=== PATIENT | female | born 1940 | race Caucasian/White ===

== ENCOUNTER 2017-03-11 17:18 | Emergency (ER) | payer MEDICARE, OTHER ==
--- NOTE | 2017-03-11 18:13 | ER NURSING DOCUMENTATION ---
Nurse's Notes [facility] Name:Raquel Rincon Age:76 yrs Sex:Female :1940 Arrival Date:03/11/2017 Time:17:18 Bed1 Private MD:Elvira Mitchell Diagnosis:Acute Sinusitis Presentation: 03/11 17:30 Presenting complaint: Patient states: facial pain around eyes, bridge of nose and sc1 forehead worsening for 2 days. Not blowing anything out of nose. Transition of care: Home. Notified ED Physician of Sal [place] notified. 17:30 Acuity: SIGRID 3 sc1 17:30 Method Of Arrival: Private Vehicle ga1 Triage Assessment: 17:46 General: Appears uncomfortable, well developed, well nourished, well groomed, Behavior sc1 is cooperative, pleasant. Pain: Complains of pain in forehead, right eye, right cheek, left cheek and left eye. Historical: - Allergies: DONEPEZIL; Codeine; Latex; - Home Meds: 1. donepezil 5 mg oral tab 2. thyroid med 3. Avastatin - PMHx: GERD; hyperlipidemia; HYPOTHYROIDISM; - PSHx: HYSTERECTOMY; SHOULDER SURGERY; finger surgery; CHOLECYSTECTOMY; - Tetanus: unknown. - Ebola Screening: : Patient negative for fever greater than or equal to 101.5 degrees Fahrenheit, and additional compatible Ebola Virus Disease symptoms. Patient denies exposure to infectious person. Patient denies travel to an Ebola-affected area in the 21 days before illness onset. No symptoms or risks identified at this time. . - Immunization history: Pneumococcal vaccine is up to date, Flu Vaccine < 1 year. - Social history: Smoking status: Patient states was never smoker of tobacco. Patient uses alcohol but reports only rare drinking. Patient/guardian denies using street drugs, IV drugs, marijuana. Screenin:49 Infectious Disease Risk None. Abuse screen: Denies threats or abuse. Nutritional sc1 screening: No deficits noted. Vital Signs: 17:48 BP 145 / 60; Pulse 89; Resp 18; Temp 98.9(O); Pulse Ox 94% on R/A; sc1 ED Course: 17:21 Patient arrived in ED. arc 17:21 Elviar Mitchell MD is Private Physician. arc 17:30 Nielsen, Sabrina, RN is Primary Nurse. sc1 17:33 Triage completed. ga1 17:47 Ari Huang MD is Attending Physician. daxa 17:48 Notified ED Physician of patient's arrival and chief complaint. Dr. Huang notified. ga1 17:58 Elvira Mitchell MD is Referral Physician. 18:12 Valuables Remains with patient. sc1 Administered Medications: No medications were administered Outcome: 17:58 Discharge ordered by . 18:12 Discharged to home ambulatory. [facility] [place] 18:12 Condition: stable 18:12 Discharge instructions given to patient, Instructed on discharge instructions, follow up and referral plans. medication usage, Demonstrated understanding of instructions, medications. 18:12 Patient left the ED. [facility] [place] Signatures: Sabrina Nielsen RN RN ga1 Ari Huang MD MD jm Chew, Amelia, Reg Reg arc
--- NOTE | 2017-03-11 18:13 | ER PHYSICIAN DOCUMENTATION ---
Physician Documentation [facility] Name:Raquel Rincon Age:76 yrs Sex:Female :1940 Arrival Date:03/11/2017 Time:17:18 Bed1 Private MD:Elvira Mitchell ED, John Disposition: 03/11/17 17:58 Discharged to Home/Self Care. Impression: Acute Sinusitis. - Condition is Good. - Discharge Instructions: SINUSITIS, No Abx. - Medical Reconciliation form form. - Follow up: Elvria Mitchell MD; When: later this week; Reason: Continuance of care. - Problem is new. - Symptoms have improved. - Notes: Buy a Tylenol Cold and Sinus tabs Buy Aleve Buy a Neti Pot Buy Nasacort nasal spray Use all of these to help with your pain. HPI: 03/11 18:00 This 76 yrs old Female presents to ER via Private Vehicle with complaints of jm Sinus Congestion. 18:00 The patient or guardian reports congestion. Onset: The symptom(s)/episode jm began/occurred 2 day(s) ago. Severity of symptoms: At their worst the symptoms were severe. Modifying factors:. Associated signs and symptoms: Pertinent positives: Facial [place]. , Pertinent negatives: ear ache, fever, sore throat, vomiting. The patient has not recently seen a physician. Pt w 2 days of sinus plugging w facial pain. Pt has not tried a single OTC medicine to help w sx. . Historical: - Allergies: DONEPEZIL; Codeine; Latex; - Home Meds: 1. donepezil 5 mg oral tab 2. thyroid med 3. Avastatin - PMHx: GERD; hyperlipidemia; HYPOTHYROIDISM; - PSHx: HYSTERECTOMY; SHOULDER SURGERY; finger surgery; CHOLECYSTECTOMY; - Tetanus: unknown. - Ebola Screening: : Patient negative for fever greater than or equal to 101.5 degrees Fahrenheit, and additional compatible Ebola Virus Disease symptoms. Patient denies exposure to infectious person. Patient denies travel to an Ebola-affected area in the 21 days before illness onset. No symptoms or risks identified at this time. . - Immunization history: Pneumococcal vaccine is up to date, Flu Vaccine < 1 year. - Social history: Smoking status: Patient states was never smoker of tobacco. Patient uses alcohol but reports only rare drinking. Patient/guardian denies using street drugs, IV drugs, marijuana. ROS: 18:00 Constitutional: Negative for fever. 18:00 ENT: Positive for sinus congestion. 18:00 Cardiovascular: Negative for chest pain. 18:00 Respiratory: Negative for cough. 18:00 Neuro: Positive for headache. Exam: 18:00 Constitutional: The patient appears alert, awake. 18:00 ENT: Nose: Nasal mucosa: erythematous, Posterior pharynx: is normal, Voice: is normal. 18:00 Cardiovascular: Rate: normal, Rhythm: regular. 18:00 Respiratory: Respirations: normal, Breath sounds: are normal. Vital Signs: 17:48 BP 145 / 60; Pulse 89; Resp 18; Temp 98.9(O); Pulse Ox 94% on R/A; sc1 MDM: 17:47 Patient medically screened. 18:00 Differential Diagnosis: Sinusitis. Data reviewed: vital signs, nurses notes, and as a result, I will discharge patient. Counseling: I had a detailed discussion with the patient and/or guardian regarding: the historical points, exam findings, and any diagnostic results supporting the discharge/admit diagnosis, the need for outpatient follow up, with the patient's primary care provider. Special discussion: I discussed with the patient/guardian that the patient's current presentation does not indicate dosing of antibiotics. They should follow-up with their primary care provider and return if the symptoms persist or progress. Dispensed Medications: No medications were administered Signatures: Sabrina Nielsen RN RN me1 Ari Huang MD MD
== END 2017-03-11 18:12 | disposition home or self-care (01) ==
LOC: ER 17:18
DX: J01.90 Acute sinusitis, unspecified (principal); Z79.899 Other long term (current) drug therapy
CPT/HCPCS: 99281